=== PATIENT | male | born 1950 | race Caucasian/White ===

== ENCOUNTER 2021-05-22 06:14 | Emergency (ER) | payer OTHER ==
[~2021-05-22] VITALS: Ht 190.5 cm; Wt 101.2 kg
--- NOTE | ~2021-05-22 | EMS ---
[address] [address] EMS Patient Care Report Name: ANTONIA HALL Room #: [facility]#: [id number] Admission: Attend Phys: Discharge: Date of : 52 Report #: [id number] THIS REPORT FOR: //name// Report Transmitted: 05/22/2021 06:17 EMS Care Summary [facility] MED-ACT Incident [id number] @ 05/22/2021 05:29 Incident Location [address] [place] [address] Patient ANTONIA HALL Male, 70 Years 1950 Patient Address [address] [place] [address] Patient History Hypertension (HTN),Stroke/CVA, Patient Allergies Penicillin allergy, Patient Medications Aspirin, Unknown, Atorvastatin, Tylenol, Lisinopril, Chief Complaint Nausea Disposition Transported No Lights/[place] Dispatch Reason Sick Person Transported To [facility] Narrative Medic 1144 arrived on scene to find the patient sitting in a wheelchair A&OX4. The patient appears to be in no obvious distress. Staff on scene informed EMS [address] [address] EMS Patient Care Report Name: ANTONIA HALL Room #: [facility]#: [id number] Admission: Attend Phys: Discharge: Date of : 52 Report #: [id number] that the patient started to have nausea and vomiting around 4am this morning. There was no noticeable blood in the vomit. The patient informed EMS that she has anxiety and feel extremely anxious about going to the hospital` but will not expand on why. The patient has 3/10 abdominal pain and informs EMS that he has not had a bowel movement in 6 days. EMS assessed the patient and assisted the patient to the cot. The patient was secured and moved to the ambulance for secondary assessment. Upon secondary assessment the patient informed EMS that he was nauseous. EMS obtained IV access and administered Zofran after completing the medication cross check. The patient was monitored throughout transport. Upon arrival to the ED EMS gave report to ED staff. Medic 1144 clear. Initial Vitals @05:54P: 92,OR Suspected: false @05:50P: 98,BP: 125/88,SpO2: 96, @05:53P: 97,SpO2: 96, @06:03P: 93,R: 18,BP: 145/89,Pain: 2/10,GCS: 15,SpO2: 96,Revised Trauma: 12, @05:43P: 106,R: 16,BP: 120/74,Pain: 2/10,GCS: 15,Temp: 97.2F,SpO2: 94,Revised Trauma: 12, Assessments @05:42MENTAL:No Abnormalities,SKIN:HEENT:Head/Face: No Abnormalities,LUNG SOUNDS:General: Vomiting,General: Nausea,ABDOMEN:General: Vomiting,General: Nausea,PELVIS//GI:EXTREMITIES:Capillary Refill: Left Upper: < 2 Sec,Left Arm: No Abnormalities,Right Arm: No Abnormalities,Left Leg: No Abnormalities,Right Leg: No Abnormalities,PULSE:Radial: 2+ Normal,NEURO:Weakness Right-Sided, Impression Nausea Procedures @05:56Ondansetron - 4 Milligrams (mg) - Intravenous (IV)Response: Improved@06:28ALS AssessmentResponse: UnchangedSucceeded@05:53Saline Lock 10cc (20 ga) Site: Hand-LeftResponse: UnchangedSucceeded Timeline 05:28,Call Received 05:28,Psap Call 05:29,Dispatched 05:31,En Route 05:38,On Scene 05:41,At Patient 05:43,BP: 120/74 M,PULSE: 106,RR: 16 R,SPO2: 94 Ox,ETCO2: ,BG: ,PAIN: 2,GCS: 15, 05:50,BP: 125/88 M,PULSE: 98,RR: R,SPO2: 96 Ox,ETCO2: ,BG: ,PAIN: ,GCS: , 05:53,Saline Lock 10cc 20 ga Site: Hand-Left,Response: UnchangedSucceeded, [address] [address] EMS Patient Care Report Name: HALLANTONIA Room #: PRE M.R.#: [id number] Admission: Attend Phys: Discharge: Date of : 52 Report #: [id number] 05:53,BP: / M,PULSE: 97,RR: R,SPO2: 96 Ox,ETCO2: ,BG: ,PAIN: ,GCS: , 05:54,BP: / M,PULSE: 92,RR: R,SPO2: Ox,ETCO2: ,BG: ,PAIN: ,GCS: , 05:56,Ondansetron - 4 Milligrams (mg) - Intravenous (IV),Response: Improved 05:59,Depart Scene 06:03,BP: 145/89 M,PULSE: 93,RR: 18 R,SPO2: 96 Ox,ETCO2: ,BG: ,PAIN: 2,GCS: 15, 06:09,At Destination 06:28,ALS Assessment,Response: UnchangedSucceeded, 06:35,Call Closed Disclaimer v1.1 Copyright 2020 [employer] This EMS Care Summary contains data elements from the applicable legal record (which may be displayed differently). It is designed to provide pertinent information for the following purposes: continuity of care, clinical quality, and state data reporting. The complete legal record is available to ED staff and administrators of the receiving hospital in [employer] Patient Tracker. All data is provided "as is."
[2021-05-22] MEDS ORDERED: SENNA8.6 MG PO (06:34)
[2021-05-22] MEDS ORDERED: DULCOLAX10 MG RECTAL (06:34)
[2021-05-22] MEDS ORDERED: MILK OF MA400 MG/5 M PO (06:35)
[2021-05-22] MEDS ORDERED: LISINOPRIL5 MG PO (06:36)
[2021-05-22] MEDS ORDERED: ACETAMINOPHEN325 MG PO (06:36)
[2021-05-22] MEDS ORDERED: LIPITOR10 MG PO (06:37)
[2021-05-22] MEDS ORDERED: ASA81BEC PO (06:37)
[2021-05-22 06:55] LABS: ABSOLUTE NEUTROPHILS 6.6 thou/uL (1.4-8.2); BASOPHILS 0.2 % (0.0-2.0); EOSINOPHILS 1.7 % (0.0-3.0); HEMATOCRIT 48.7 % (42.0-52.0); HEMOGLOBIN 16.4 gm/dL (14.0-18.0); LYMPHOCYTES 23.5 % (24.0-44.0); MCH 30.6 pg (26.0-34.0); MCHC 33.7 g/dL (28.0-37.0); MCV 90.7 fL (80.0-100.0); MONOCYTES 9.9 % (1.0-8.0); PLATELET COUNT 147 thou/uL (150-400); POLYS 64.7 % (36.0-66.0); RBC 5.37 mil/uL (4.50-6.00); RDW 12.3 % (10.5-14.5); WBC 10.3 thou/uL (4.0-11.0)
[2021-05-22 06:56] LABS: ANION GAP 12 mmol/L (7-16); BUN 11 mg/dL (7-18); CALCIUM 9.6 mg/dL (8.5-10.1); CHLORIDE 94 mmol/L (98-107); CO2 25 mmol/L (21-32); CREATININE 1.2 mg/dL (0.7-1.3); GLUCOSE 120 mg/dL (74-106); SODIUM 131 mmol/L (136-145)
[2021-05-22 07:06] LABS: ALBUMIN 3.1 g/dL (3.4-5.0); DIRECT BILIRUBIN 0.2 mg/dL (<0.1-0.2); SGOT 73 U/L (15-37); SGPT 57 U/L (16-63); TOTAL BILIRUBIN 0.5 mg/dL (0.2-1.0); TOTAL PROTEIN 6.8 g/dL (6.4-8.2); TROPONIN-I <0.06 ng/mL (<0.06)
[2021-05-22 07:12] LABS: URINE BILIRUBIN NEGATIVE (Negative); URINE BLOOD 2+ (Negative); URINE CLARITY CLOUDY; URINE COLOR YELLOW; URINE GLUCOSE-RANDOM* NEGATIVE (Negative); URINE KETONES TRACE (Negative); URINE NITRITE-REFLEX NEGATIVE (Negative); URINE PROTEIN (DIPSTICK) 2+ (Negative); URINE SPECIFIC GRAVITY 1.025 (1.005-1.035)
[2021-05-22 07:15] LABS: URINE LEUKOCYTES-REFLEX 3+ (Negative)
[2021-05-22 07:18] LABS: BACTERIA-REFLEX >30 Many /HPF (None Seen); CASTS None Seen /LPF (None Seen); CRYSTALS None Seen /LPF (None Seen); SQUAMOUS None Seen /LPF (0-3); URINE RBC 3-10 Few /HPF (NONE SEEN); URINE WBC-REFLEX >25 Many /HPF (0-5)
--- NOTE | 2021-05-22 07:19 | EKG ---
[address] [address] ELECTROCARDIOGRAM REPORT Name: ANTONIA HALL [facility] [id number] Admission: Attend Phys: Discharge: Date of : 52 Report #: [id number] [facility] ED Test Date: 2021-05-22 Test Time: 06:29:13 Pat Name: ANTONIA HALL Department: Room: Gender: Adjunct Psychology Faculty Member: : 1950 Requested By: Jade Alvarez Order Number: [id number] MD: Luis Carter Measurements Intervals [place] Rate: 90 P: 38 [place]: 176 QRS: -67 QRSD: 111 T: 2 QT: 376 QTc: 460 Interpretive Statements Sinus rhythm Inferior infarct, old No previous ECG available for comparison Electronically Signed On 05-22-2021 7:19:04 CDT by Luis Carter [email or web address] <ELECTRONICALLY SIGNED> By: Luis Carter MD, [facility] 05/22/21718 8 0629 Luis Carter MD, FAC /EPI
[2021-05-22] MEDS ORDERED: CEPHALEXIN500 MG PO (10:26)
[2021-05-22 11:14] VITALS: BP 143/98
== END 2021-05-22 11:16 | disposition home or self-care (01) ==
LOC: ER 06:14
PROVIDERS: Emergency Medicine
DX: N39.0 Urinary tract infection, site not specified (principal); Z79.82 Long term (current) use of aspirin; Z79.899 Other long term (current) drug therapy; Z88.0 Allergy status to penicillin; Z87.891 Personal history of nicotine dependence